=== PATIENT | female | born 1985 | race Caucasian/White ===

== ENCOUNTER 2020-08-12 02:45 | Observation (INO) | payer OTHER ==
[~2020-08-12] VITALS: Ht 170.2 cm; Wt 76.7 kg
[2020-08-12] MEDS ORDERED: PREN-96 PO (03:16)
[2020-08-12] MEDS ORDERED: TERBUTALINE SULFATE 1 MG/ML 1ML VIAL SC SCH (03:45)
== END 2020-08-12 04:05 | disposition left against medical advice (07) ==
LOC: LDRP 02:45
PROVIDERS: ADMIT Obstetrics & Gynecology; ATTEND Obstetrics & Gynecology
DX: O26.893 Other specified pregnancy related conditions, third trimester (principal); R10.30 Lower abdominal pain, unspecified; Z3A.29 29 weeks gestation of pregnancy; Z87.42 Personal history of other diseases of the female genital tract
CPT/HCPCS: 59025; 81002; G0378